=== PATIENT | male | born 1955 | race Caucasian/White ===

== ENCOUNTER 2018-11-06 06:38 | Day surgery (SDC) | payer OTHER ==
[~2018-11-06] VITALS: Ht 175.3 cm; Wt 93.2 kg
[2018-11-06] VITALS (7 sets, daily range): BP systolic 103–144; BP diastolic 60–92; PULSE 51–64; RESP 18–33; Ht 175.3 cm; Wt 93.2 kg
[~2018-11-06 06:38] MED LIST: ASPI-817 PO; ATOR20TA38 PO; ESCI20TA38 PO
--- NOTE | 2018-11-06 09:59 | PREAC ---
Date/Time of Note Date/Time of Note DATE: 11/06/18 TIME: 09:58 Anesthesia Eval and Record Evaluation Time Pre-Procedure Interview DATE: 11/06/18 TIME: 09:58 Age 63 Sex male NPO: 8 hrs Preoperative diagnosis family history colon cancer Planned procedure colonoscopy Past Medical History Past Medical History: Includes Cardio: Dyslipidemia (on statin) Pulm: Sleep Apnea, Home CPAP GI: Obesity (bmi 30) Psych: Depression Surgery & Anesthesia Issues No known issue Meds Anticoagulation: No Beta Lacie within 24 hr: No Reason Beta Lacie not given: Pt. not on B-Lacie Reported Medications Aspirin* (Aspirin* EC) 81 Mg Tablet.dr, 81 MG PO DAILY, TAB 11/06/18 Escitalopram Oxalate* (Escitalopram Oxalate*) 20 Mg Tablet, 20 MG PO DAILY, #30 TAB 11/06/18 Atorvastatin Calcium* (Atorvastatin Calcium*) 20 Mg Tablet, 20 MG PO QHS, #30 TAB 11/06/18 Meds reviewed: Yes Allergies Coded Allergies: No Known Allergy (Unverified , 11/06/18) Allergies Reviewed: Yes Labs/Studies Labs Reviewed: Other (n/a) test: N/A Pre-procedure Exam Airway: Adequate mouth opening, Adequate thyromental dist Mallampati: Mallampati II Teeth: Normal Lung: Normal Heart: Normal ASA Physical Status ASA physical status: 2 Emergency: None Planned Anesthetic General/MAC: MAC Planned Pain Management Parenteral pain med, Local by surgeon Pre-operative Attestations Prior to commencing anesthesia and surgery, the patient was re-evaluated, there was verification of: *The patient's identity *The results of appropriate recent lab work and preoperative vital signs *The above evaluation not changing prior to induction *Anesthetic plan, risk benefits, alternative and complications discussed with patient/family; questions answered; patient/family understands, accepts and wishes to proceed. GINNY SALEEM Nov 06, 2018 09:59
[2018-11-06] MEDS ORDERED: PROPOFOL 60 ML ONE (10:35)
--- NOTE | 2018-11-06 10:51 | PAC ---
Date/Time of Note Date/Time of Note DATE: 11/06/18 TIME: 10:51 Post-Anesthesia Notes Post-Anesthesia Note Last documented vital signs Vital Signs Date Temp Pulse Resp B/P (MAP) Pulse Ox O2 O2 Flow FiO2 Time Delivery Rate 11/06/18 97.4 61 20 142/92 98 Room Air 10:07 (109) Activity: WNL Respiratory function: WNL Cardiovascular function: WNL Mental status: Baseline Pain reasonably controlled: Yes Hydration appropriate: Yes Nausea/Vomiting absent: Yes GINNY SALEEM Nov 06, 2018 10:51
== END 2018-11-06 11:50 | disposition home or self-care (01) ==
LOC: GIL 06:38
PROVIDERS: ATTEND Internal Medicine Gastroenterology
DX: Z12.11 Encounter for screening for malignant neoplasm of colon (principal); K57.30 Diverticulosis of large intestine without perforation or abscess without bleeding; K64.8 Other hemorrhoids; Z80.0 Family history of malignant neoplasm of digestive organs; E78.00 Pure hypercholesterolemia, unspecified; F32.9 Major depressive disorder, single episode, unspecified
CPT/HCPCS: 45378; Z7610